=== PATIENT | female | born 2000 | race Caucasian/White ===

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

== ENCOUNTER 2021-11-19 19:41 | Emergency (ER) | payer OTHER ==
[~2021-11-19] VITALS: Ht 177.8 cm; Wt 156.4 kg
[2021-11-19 19:42] VITALS: BP 142/93
[2021-11-19] MEDS ORDERED: CETI1TAB61 PO ×2 (21:32)
[2021-11-19] MEDS ORDERED: PRENTAB9 PO (21:32)
[2021-11-19] MEDS ORDERED: ECOT81TA5 PO (21:33)
== END 2021-11-19 20:25 | disposition admitted as inpatient to this hospital (09) ==
LOC: M ED 19:41
DX: O26.90 Pregnancy related conditions, unspecified, unspecified trimester (principal); R22.43 Localized swelling, mass and lump, lower limb, bilateral; Z3A.20 20 weeks gestation of pregnancy; Z79.899 Other long term (current) drug therapy

== ENCOUNTER 2021-11-19 20:23 | Outpatient (CLI) | payer OTHER ==
[~2021-11-19] VITALS: Ht 177.8 cm; Wt 155.6 kg
[2021-11-19 20:54] VITALS: BP 114/69
[2021-11-19 21:03] VITALS: BP 124/86
[2021-11-19] MEDS ORDERED: CETI1TAB61 PO (21:32)
[2021-11-19] MEDS ORDERED: PRENTAB9 PO (21:32)
[2021-11-19] MEDS ORDERED: ECOT81TA5 PO (21:33)
[2021-11-19 22:37] LABS: HEMATOCRIT 34.7 % (36.0-47.0); HEMOGLOBIN 11.2 g/dl (12.0-15.5); MEAN CORPUSCULAR HEMOGLOBIN 27.9 pg (27.0-33.0); MEAN CORPUSCULAR HGB CONC 32.3 g/dl (32.0-36.5); MEAN CORPUSCULAR VOLUME 86.5 fl (80.0-96.0); PLATELET COUNT, AUTOMATED 267 10^3/uL (150-450); RED BLOOD COUNT 4.01 10^6/uL (4.00-5.40); WHITE BLOOD COUNT 10.3 10^3/uL (4.0-10.0)
[2021-11-19 22:43] LABS: APPEARANCE, URINE TURBID (CLEAR); BACTERIA, URINE AUTO NEGATIVE (NEGATIVE); BILIRUBIN, URINE AUTO NEGATIVE (NEGATIVE); BLOOD, URINE BLOOD 2+ (NEGATIVE); COLOR, URINE AMBER (YELLOW); GLUCOSE, URINE (UA) AUTO NEGATIVE (NEGATIVE); KETONE, URINE AUTO NEGATIVE (NEGATIVE); LEUKOCYTE ESTERASE, URINE AUTO 2+ (NEGATIVE); MUCUS, URINE SMALL (NEGATIVE); NITRITE, URINE AUTO NEGATIVE (NEGATIVE); PROTEIN, URINE AUTO 2+ mg/dL (NEGATIVE); RBC, URINE AUTO 49 /HPF (0-3); SPECIFIC GRAVITY URINE AUTO 1.012 (1.002-1.035); SQUAMOUS EPITHELIAL CELL UR AU 0 /HPF (0-6); UROBILINOGEN, URINE AUTO 0.2 mg/dL (0.0-2.0); WBC, URINE AUTO TNTC /HPF (0-3)
[2021-11-19 22:52] LABS: ALT/SGPT 28 U/L (12-78); BILIRUBIN,TOTAL 0.1 MG/DL (0.2-1.0); BLOOD UREA NITROGEN 5 MG/DL (7-18); CARBON DIOXIDE LEVEL 28 MEQ/L (21-32); CHLORIDE LEVEL 104 MEQ/L (98-107); CREATININE FOR GFR 0.48 MG/DL (0.55-1.30); GLUCOSE, FASTING 127 MG/DL (70-100); LDH LACTATE DEHYDROGENASE 183 U/L (84-246); POTASSIUM SERUM 4.1 MEQ/L (3.5-5.1); SODIUM LEVEL 138 MEQ/L (136-145); URIC ACID 4.5 MG/DL (2.6-6.0)
[2021-11-19 22:53] LABS: HEMOGLOBIN A1c 5.6 %
[2021-11-19 23:02] LABS: TOTAL PROTEIN,RANDOM URINE 112.4 MG/DL (0.0-12.0)
== END 2021-11-19 23:34 | disposition home or self-care (01) ==
LOC: M LDO 20:23
PROVIDERS: ATTEND Obstetrics & Gynecology
DX: O26.893 Other specified pregnancy related conditions, third trimester (principal); R60.9 Edema, unspecified; O99.283 Endocrine, nutritional and metabolic diseases complicating pregnancy, third trimester; E86.0 Dehydration; Z3A.31 31 weeks gestation of pregnancy
CPT/HCPCS: 36415; 59025; 80048; 81001; 82247; 82565; 82570; 83036; 83615; 84156; 84450; 84460; 84550; 85027; 87086; G0463

== ENCOUNTER 2022-01-11 17:00 | Outpatient (CLI) | payer OTHER ==
[~2022-01-11] VITALS: Ht 177.8 cm; Wt 158.0 kg
[~2022-01-11 17:00] MED LIST: CETI1TAB61 PO; ECOT81TA5 PO; PRENTAB9 PO
[2022-01-11 17:56] VITALS: BP 114/70
[2022-01-11] MEDS ORDERED: ALBU8.5H INH (18:05)
[2022-01-11] MEDS ORDERED: INSUHUMDS SC ×2 (18:07)
[2022-01-11] MEDS ORDERED: HOME MED LIST COMPLETE! XX SCH (18:10)
[2022-01-11 18:30] VITALS: BP 113/68
== END 2022-01-11 19:11 | disposition home or self-care (01) ==
LOC: UNDOADMIN 17:00 → M LDO 17:00 → M LDI 17:00 → M LDO 19:11 → PREINTOOBSV 19:32
PROVIDERS: ATTEND Obstetrics & Gynecology
DX: O26.893 Other specified pregnancy related conditions, third trimester (principal); N89.8 Other specified noninflammatory disorders of vagina; Z3A.38 38 weeks gestation of pregnancy; O24.414 Gestational diabetes mellitus in pregnancy, insulin controlled
CPT/HCPCS: 59025; 76815; G0463

== ENCOUNTER 2022-01-17 18:40 | Inpatient (IN) | payer OTHER ==
[~2022-01-17] VITALS: Ht 177.8 cm; Wt 158.1 kg
[~2022-01-17 18:40] MED LIST changes: +ALBU8.5H INH; +INSUHUMDS SC
[2022-01-17 19:22] VITALS: BP 140/91
[2022-01-17 19:23] VITALS: BP 140/91
[2022-01-17 19:40] VITALS: BP 143/94
[2022-01-17] MEDS ORDERED: OXYTOCIN DRIP 30 UNITS in IV 1 EA IV SCH (19:50)
[2022-01-17] MEDS ORDERED: CARBOPROST TROMETHAMINE 250 MCG/ML AMP IM PRN (19:50)
[2022-01-17] MEDS ORDERED: LR 1,000 ML IV SCH ×2 (19:50→19:55)
[2022-01-17] MEDS ORDERED: LIDOCAINE 1% MDV 20ML VIAL INFIL PRN (19:50)
[2022-01-17] MEDS ORDERED: TRANEXAMIC ACID INJection 1,000 MG in NS 100 ML IV PRN (19:50)
[2022-01-17] MEDS ORDERED: OXYTOCIN DRIP 30 UNITS in IV 1 EA IV PRN ×6 (19:50)
[2022-01-17] MEDS ORDERED: OXYTOCIN INJ 10 UNITS/ML VIAL (J2590) IM PRN (19:50)
[2022-01-17] MEDS ORDERED: miSOPROStol 50MCG 1/2 TABLET PO ONE (19:50)
[2022-01-17] MEDS ORDERED: OXYTOCIN INJ 10 UNITS/ML VIAL (J2590) IV PRN (19:50)
[2022-01-17] MEDS ORDERED: PENICILLIN G POTASSIUM IV 5 MU in D5W MINI-BAG PLUS 100 ML IV STA (19:52)
[2022-01-17] MEDS ORDERED: LACTATED RINGER'S 1000 ML IV STA (19:52)
[2022-01-17] MEDS ORDERED: INSULIN IV RATE CHANGE DOCUMENTATION ML/HR XX SCH (20:05)
[2022-01-17 20:35] VITALS: BP 160/105
[2022-01-17 20:37] LABS: HEMATOCRIT 36.5 % (36.0-47.0); MEAN CORPUSCULAR HEMOGLOBIN 27.3 pg (27.0-33.0); MEAN CORPUSCULAR HGB CONC 32.9 g/dl (32.0-36.5); MEAN CORPUSCULAR VOLUME 83.1 fl (80.0-96.0); PLATELET COUNT, AUTOMATED 289 10^3/uL (150-450); RED BLOOD COUNT 4.39 10^6/uL (4.00-5.40); WHITE BLOOD COUNT 9.3 10^3/uL (4.0-10.0)
[2022-01-17 21:13] LABS: ALT/SGPT 17 U/L (12-78); BILIRUBIN,TOTAL 0.2 MG/DL (0.2-1.0); CREATININE FOR GFR 0.63 MG/DL (0.55-1.30); GLOMERULAR FILTRATION RATE > 60.0 (>60); LDH LACTATE DEHYDROGENASE 181 U/L (84-246); URIC ACID 5.3 MG/DL (2.6-6.0)
[2022-01-17 22:40] VITALS: BP 164/89
[2022-01-17] MEDS: NS 1,000 ML IV SCH (22:56)
[2022-01-17] MEDS: INSULIN REGULAR IN 0.9 % NACL 100 UNIT in IV 1 EA IV SCH ×2 (22:56)
[2022-01-18] VITALS (16 sets, daily range): BP systolic 104–142; BP diastolic 51–96
[2022-01-18] MEDS: INSULIN REGULAR IN 0.9 % NACL 100 UNIT in IV 1 EA IV SCH ×8 (00:45→13:22)
[2022-01-18] MEDS: miSOPROStol 50MCG 1/2 TABLET PO SCH ×5 (01:06→17:00)
[2022-01-18] MEDS: PENICILLIN G POTASSIUM IV 2.5 MU in IV 1 EA IV SCH ×4 (09:56→23:10)
[2022-01-18] MEDS: NS 1,000 ML IV SCH ×3 (12:05→19:05)
[2022-01-18] MEDS ORDERED: HOME MED LIST COMPLETE! XX SCH (14:10)
[2022-01-19] VITALS (24 sets, daily range): BP systolic 105–151; BP diastolic 53–98
[2022-01-19] MEDS: PENICILLIN G POTASSIUM IV 2.5 MU in IV 1 EA IV SCH ×6 (03:15→23:03)
[2022-01-19] MEDS: NS 1,000 ML IV SCH (07:03)
[2022-01-19] MEDS ORDERED: ePHEDrine SULFATE 25 MG/5 ML(5MG/ML) SYRINGE IVP PRN (18:05)
[2022-01-19] MEDS ORDERED: ONDANSETRON 4MG 2ML VIAL IV PRN (18:05)
[2022-01-19] MEDS ORDERED: LR 500 ML IV PRN (18:05)
[2022-01-19] MEDS ORDERED: NALOXONE INJ 0.4MG/1ML VIAL (J2310 PER 1MG) IV PRN (18:05)
[2022-01-19] MEDS ORDERED: FENTANYL/ROPIVACAINE/NACL BAG 100 ML EPIDURAL SCH (18:05)
[2022-01-19] MEDS ORDERED: EPIDURAL/PCA KEYS XX PRN (18:05)
[2022-01-19] MEDS ORDERED: diphenhydrAMINE 50MG/ML VIAL (J1200) IV PRN (18:05)
[2022-01-19] MEDS ORDERED: REFLB XX ONE (18:11)
[2022-01-19] MEDS ORDERED: FENTANYL 2MCG/ML ROPIVACAINE 0.2% IN 0.9% NACL 100ML IVBAG As Ordered ONE (18:12)
[2022-01-19] MEDS: INSULIN REGULAR IN 0.9 % NACL 100 UNIT in IV 1 EA IV SCH ×2 (21:04)
[2022-01-20] VITALS (21 sets, daily range): BP systolic 117–153; BP diastolic 62–90
[2022-01-20] MEDS ORDERED: REFLB XX ONE (02:00)
[2022-01-20] MEDS ORDERED: FENTANYL 2MCG/ML ROPIVACAINE 0.2% IN 0.9% NACL 100ML IVBAG As Ordered ONE (02:00)
[2022-01-20] MEDS: PENICILLIN G POTASSIUM IV 2.5 MU in IV 1 EA IV SCH (02:52)
[2022-01-20] MEDS: NS 1,000 ML IV SCH (03:11)
[2022-01-20 05:15] LABS: CORD GAS ABE V -5.3; CORD GAS HCO3 V 19.9 MEQ/L; CORD GAS O2 SAT V 89.3 %; CORD GAS PCO2 V 38.6 mmHg; CORD GAS PH V 7.331 UNITS; CORD GAS PO2 V 44.1 mmHg; CORD GAS TCO2 V 21.1 MEQ/L
[2022-01-20 05:18] LABS: CORD GAS ABE A -9.2; CORD GAS HCO3 A 19.6 MEQ/L; CORD GAS O2 SAT A 58.8 %; CORD GAS PCO2 A 52.4 mmHg; CORD GAS PH A 7.19 UNITS; CORD GAS PO2 A 26.1 mmHg; CORD GAS SBC A 16.4 MEQ/L; CORD GAS TCO2 A 21.2 MEQ/L
[2022-01-20] MEDS ORDERED: DIBUCAINE 1% OINTMENT 30GM TOP PRN (05:40)
[2022-01-20] MEDS ORDERED: ACETAMINOPHEN 500 MG TAB PO PRN (05:40)
[2022-01-20] MEDS ORDERED: METHYLERGONOVINE MALEATE 0.2 MG TAB PO PRN (05:40)
[2022-01-20] MEDS ORDERED: MOM 30ML SUSPENSION UDC PO PRN (05:40)
[2022-01-20] MEDS ORDERED: IBUPROFEN 800 MG TAB PO PRN (05:40)
[2022-01-20] MEDS ORDERED: OXYTOCIN 30 UNITS IN 0.9% NaCl 500ML IV BAG (J2590) As Ordered ONE (06:07)
[2022-01-20] MEDS: DOCUSATE SODIUM 100MG CAPSULE PO SCH ×2 (08:18→21:36)
[2022-01-20] MEDS: PRENATAL VITAMINS CHEWABLE TABLET PO SCH (08:18)
[2022-01-20] MEDS ORDERED: PRENATAL VITAMINS CHEWABLE TABLET PO SCH (09:00)
[2022-01-20] MEDS ORDERED: INSULIN LISPRO (NovoLOG) PER UNIT SC SCH (21:00)
[2022-01-21 06:05] VITALS: BP 131/82
[2022-01-21] MEDS: PRENATAL VITAMINS CHEWABLE TABLET PO SCH (09:25)
[2022-01-21] MEDS: DOCUSATE SODIUM 100MG CAPSULE PO SCH (09:25)
[2022-01-21] MEDS ORDERED: COLA100C5 PO (09:36)
[2022-01-21] MEDS ORDERED: IBUP80TA PO (09:36)
[2022-01-21] MEDS ORDERED: PRENCHW PO (09:36)
[2022-01-22] MEDS ORDERED: MEASLES,MUMPS,RUBELLA VACCINE INJ (MMR-II) (90707) SC.IMMUN ONE (09:00)
== END 2022-01-21 11:55 | disposition home or self-care (01) | DRG 807 ==
LOC: M LDI 18:40 → M OBS 01-20 08:56
PROVIDERS: ADMIT Obstetrics & Gynecology; ATTEND Obstetrics & Gynecology
PROC: 3E0P7GC Introduction of Other Therapeutic Substance into Female Reproductive, Via Natural or Artificial Opening (ICD-10-PCS; 2022-01-17)
PROC: 10907ZC Drainage of Amniotic Fluid, Therapeutic from Products of Conception, Via Natural or Artificial Opening (ICD-10-PCS; 2022-01-19)
PROC: 10E0XZZ Delivery of Products of Conception, External Approach (ICD-10-PCS; principal; 2022-01-20)
PROC: 0KQM0ZZ Repair Perineum Muscle, Open Approach (ICD-10-PCS; 2022-01-20)
DX: O24.424 Gestational diabetes mellitus in childbirth, insulin controlled (principal); Z37.0 Single live birth; Z3A.39 39 weeks gestation of pregnancy; O99.824 Streptococcus B carrier state complicating childbirth; O13.4 Gestational [pregnancy-induced] hypertension without significant proteinuria, complicating childbirth; O77.0 Labor and delivery complicated by meconium in amniotic fluid; O76 Abnormality in fetal heart rate and rhythm complicating labor and delivery; O69.1XX0 Labor and delivery complicated by cord around neck, with compression, not applicable or unspecified; O69.2XX0 Labor and delivery complicated by other cord entanglement, with compression, not applicable or unspecified; O70.1 Second degree perineal laceration during delivery